=== PATIENT | female | born 1990 | race African-American/Black ===

== ENCOUNTER 2016-10-16 21:15 | Emergency (ER) | payer SELFPAY ==
--- NOTE | 2016-10-16 21:55 | ER Document Report ---
ED Medical Screen (RME) - General Stated Complaint: ABDOMINAL PAIN Mode of Arrival: Ambulatory Information source: Patient Notes: Patient complains of left lower quadrant pain that started yesterday that started off and on. Patient is currently 10 weeks . Patient denies vaginal bleeding or discharge. No urinary symptoms. No vomiting or diarrhea. . Patient has not had an ultrasound confirmed . hx: None I have greeted and performed a rapid initial assessment of this patient. A comprehensive ED assessment and evaluation of the patient, analysis of test results and completion of the medical decision making process will be conducted by additional ED providers. TRAVEL OUTSIDE OF THE [place] IN LAST 30 DAYS: No - Related Data Allergies/Adverse Reactions: No Known Allergies Allergy (Verified 10/16/16 21:54) Past Medical History GI Medical History: Reports: Hx Gastritis, Hx Gastroesophageal Reflux Disease. Denies: Hx Ulcer - Immunizations Hx Diphtheria, Pertussis, Tetanus Vaccination: Yes Physical Exam - Vital signs Vitals: Temp Pulse Resp BP Pulse Ox 97.8 F 100 18 122/75 100 10/16/16 21:43 10/16/16 21:43 10/16/16 21:43 10/16/16 21:43 10/16/16 21:43 - Abdominal Tenderness: Tender - Left lower quadrant Course - Re-evaluation Re-evalutation: 10/16/16 21:[address] virk regarding presentation, agrees with plan for u/s - Vital Signs Vital signs: Temp Pulse Resp BP Pulse Ox 97.8 F 100 18 122/75 100 10/16/16 21:43 10/16/16 21:43 10/16/16 21:43 10/16/16 21:43 10/16/16 21:43
[2016-10-16] MEDS ORDERED: ACETAMINOPHEN 325 MG TABLET PO ONE (21:56)
[2016-10-16 23:31] LABS: ABSOLUTE EOSINOPHILS # (AUTO) 0.1 10^3/uL (0.0-0.6); ABSOLUTE MONOCYTES (AUTO) 0.7 10^3/uL (0.1-1.4); ABSOLUTE NEUT (AUTO) 5.8 10^3/uL (1.7-8.2); BASOPHILS % (AUTO) 0.4 % (0-2); EOSINOPHILS % (AUTO) 0.8 % (0-6); HEMATOCRIT 38.1 % (36.0-47.0); HEMOGLOBIN 12.9 g/dL (12.0-15.5); HGB HCT DIFFERENCE 0.6; LYMPHOCYTES % (AUTO) 31.5 % (13-45); MEAN CORPUSCULAR HEMOGLOBIN 30.4 pg (27.0-33.4); MEAN CORPUSCULAR HGB CONC 33.7 g/dL (32.0-36.0); MEAN CORPUSCULAR VOLUME 90 fl (80-97); MONOCYTES % (AUTO) 6.9 % (3-13); RED BLOOD COUNT 4.23 10^6/uL (3.72-5.28); RED CELL DISTRIBUTION WIDTH 14.6 % (11.5-14.0); SEGMENTED NEUTROPHILS % (AUTO) 60.4 % (42-78); WHITE BLOOD COUNT 9.6 10^3/uL (4.0-10.5)
[2016-10-16 23:34] LABS: ALANINE AMINOTRANSFERASE 21 U/L (9-52); ALBUMIN 4.4 g/dL (3.5-5.0); ALKALINE PHOSPHATASE 58 U/L (38-126); ANION GAP 13 (5-19); ASPARTATE AMINO TRANSFERASE 14 U/L (14-36); BILIRUBIN,TOTAL 0.3 mg/dL (0.2-1.3); BLOOD UREA NITROGEN 7 mg/dL (7-20); CALCIUM 9.9 mg/dL (8.4-10.2); CARBON DIOXIDE 25 mmol/L (22-30); CHLORIDE 103 mmol/L (98-107); CREATININE RESULT 0.64 mg/dL (0.52-1.25); GLUCOSE 80 mg/dL (75-110); POTASSIUM 4.1 mmol/L (3.6-5.0); SODIUM 140.6 mmol/L (137-145); TOTAL PROTEIN 7.2 g/dL (6.3-8.2)
[2016-10-16 23:54] LABS: APPEARANCE,URINE SLIGHTLY-CLOUDY; BILIRUBIN,URINE NEGATIVE (NEGATIVE); GLUCOSE, URINE NEGATIVE (NEGATIVE); KETONES,URINE NEGATIVE (NEGATIVE); LEUKOCYTE ESTERASE,URINE TRACE (NEGATIVE); NITRITE,URINE NEGATIVE (NEGATIVE); PROTEIN,URINE NEGATIVE (NEGATIVE); URINE SPECIFIC GRAVITY 1.021; UROBILINOGEN,URINE NEGATIVE mg/dL (<2.0)
--- NOTE | 2016-10-17 00:27 | ER Document Report ---
ED GI/ - General Time seen by provider: 00:34 Mode of Arrival: Ambulatory Information source: Patient TRAVEL OUTSIDE OF THE [place] IN LAST 30 DAYS: No - HPI Patient complains to provider of: Abdominal pain, Onset: Other - see HPI Location: LLQ <SHREE CABELLO - Last Filed: 10/17/16 01:18> <KELLIMING VILLEDA GRACY - Last Filed: 10/17/16 05:08> - General Chief Complaint: Abdominal Pain Stated Complaint: ABDOMINAL PAIN Notes: Patient is a 26-year-old female presenting to the emergency department with complaints of abdominal pain. Patient states that her abdominal wall pain is located the LLQ of her abdomen. Patient is 10 weeks and 6 days . Patient states that she has also been very nauseous. Patient has not been able to keep her Flagyl down which she was prescribed by her PCP. Patient states she has an appointment for an ultrasound on Monday10/18/16. Patient states her pain was onset last night. Patient has no known allergies. (SHREE CABELLO) - Related Data Allergies/Adverse Reactions: No Known Allergies Allergy (Verified 10/16/16 21:54) Past Medical History - General Information source: Patient - Social History Smoking Status: Never Smoker Cigarette use (# per day): No Chew tobacco use (# tins/day): No Frequency of alcohol use: None Drug Abuse: None Family History: None GI Medical History: Reports: Hx Gastritis, Hx Gastroesophageal Reflux Disease Surgical Hx: Negative - Immunizations Hx Diphtheria, Pertussis, Tetanus Vaccination: Yes <SHREE CABELLO - Last Filed: 10/17/16 01:18> Review of Systems - Review of Systems Constitutional: No symptoms reported EENT: No symptoms reported Cardiovascular: No symptoms reported Respiratory: No symptoms reported Gastrointestinal: See HPI, Abdominal pain Genitourinary: No symptoms reported Female Genitourinary: See HPI, Musculoskeletal: No symptoms reported Skin: No symptoms reported Hematologic/Lymphatic: No symptoms reported Neurological/Psychological: No symptoms reported -: Yes All other systems reviewed and negative <SHREE CABELLO - Last Filed: 10/17/16 01:18> Physical Exam - Vital signs Interpretation: Normal - General General appearance: Appears well, Alert In distress: Mild - HEENT Head: Normocephalic, Atraumatic Eyes: Normal Pupils: PERRL - Respiratory Respiratory status: No respiratory distress Chest status: Nontender Breath sounds: Normal Chest palpation: Normal - Cardiovascular Rhythm: Regular Heart sounds: Normal auscultation Murmur: No - Abdominal Inspection: Normal Distension: No distension Bowel sounds: Normal Tenderness: Tender - mild left pelvic pain Organomegaly: No organomegaly - Back Back: Normal, Nontender - Extremities General upper extremity: Normal inspection, Normal ROM, Normal strength General lower extremity: Normal inspection, Normal ROM, Normal strength - Neurological Neuro grossly intact: Yes Cognition: Normal Orientation: AAOx4 Thom Coma Scale Eye Opening: Spontaneous Thom Coma Scale Verbal: Oriented [place] Coma Scale Motor: Obeys Commands [place] Coma Scale Total: 15 Speech: Normal - Psychological Associated symptoms: Normal affect, Normal mood - Skin Skin Temperature: Warm Skin Moisture: Dry <SHREE CABELLO - Last Filed: 10/17/16 01:18> Course - Laboratory Result Diagrams: 10/16/16 23:05 10/16/16 23:05 <SHREE CABELLO - Last Filed: 10/17/16 01:18> - Laboratory Result Diagrams: 10/16/16 23:05 10/16/16 23:05 - Diagnostic Test Radiology reviewed: Reports reviewed <MING SOSA - Last Filed: 10/17/16 05:08> - Re-evaluation Re-evalutation: 10/16 Patient with no pain on reexamination. Ultrasound within normal limits. Blood work within normal limits. No evidence for UTI. Patient will be discharged home. She does not need to have repeat ultrasound on Monday. She is instructed to call counselor. Understands and agrees with plan. Return if any worsening or concerning symptoms. Stable for discharge. (MING SOSA) - Vital Signs Vital signs: Temp Pulse Resp BP Pulse Ox 98.1 F 89 16 126/71 H 98 10/17/16 00:55 10/17/16 00:55 10/17/16 00:55 10/17/16 00:55 10/17/16 00:55 (SHREE CABELLO) (MING SOSA) - Laboratory Laboratory results interpreted by or: 10/16/16 10/16/16 10/16/16 23:05 23:05 23:05 RDW 14.6 H Beta HCG, Quant 17028.00 H Urine Blood SMALL H Ur Leukocyte Esterase TRACE H (SHREE CABELLO) (MING SOSA) Discharge <SHREE CABELLO - Last Filed: 10/17/16 01:18> <MIGN SOSA - Last Filed: 10/17/16 05:08> - Discharge Clinical Impression: Abdominal pain Qualifiers: Abdominal location: left lower quadrant Qualified Code(s): R10.32 - Left lower quadrant pain Qualifiers: Weeks of gestation: 10 weeks Qualified Code(s): Z3A.10 - 10 weeks gestation of Condition: Stable Disposition: HOME, SELF-CARE Instructions: Abdominal Pain ([facility]), Pelvic Pain in ([facility]), ( [facility]), Vaginosis, Bacterial ([facility]) Additional Instructions: Please call [phone] to cancel your ultrasound. Prescriptions: Metoclopramide HCl [Reglan 10 mg Tablet] 1 - 2 tab PO ASDIR PRN #25 tablet PRN Reason: Forms: Return to Work Scribe Attestation: 10/17/16 05:08 I personally performed the services described in the documentation, reviewed and edited the documentation which was dictated to the scribe in my presence, and it accurately records my words and actions. (MING SOSA) Scribe Documentation - Scribe Written by Scribe:: Shree Cabello 10/17/16 <SHREE CABELLO - Last Filed: 10/17/16 01:18>
[2016-10-17] MEDS ORDERED: ONDANSETRON ODT 4 MG TAB (6 TAB/DSPK) PO PRN (00:35)
[2016-10-17 01:25] VITALS: BP 126/71
== END 2016-10-17 01:00 | disposition home or self-care (01) ==
LOC: ER 21:15
DX: O26.91 Pregnancy related conditions, unspecified, first trimester (principal); R10.32 Left lower quadrant pain; R11.0 Nausea; Z3A.10 10 weeks gestation of pregnancy
CPT/HCPCS: 36415; 76817; 80053; 81001; 84702; 85025; 99284

== ENCOUNTER 2017-03-06 13:27 | Emergency (ER) | payer MEDICAID ==
--- NOTE | 2017-03-06 15:54 | ER Document Report ---
ED Extremity Problem, Lower - General Chief Complaint: Knee Pain Stated Complaint: RIGHT KNEE PAIN, SWELLING Time Seen by Provider: 03/06/17 15:36 Mode of Arrival: Ambulatory Information source: Patient Notes: 27-year-old female presents to ED for right knee pain and swelling since . She denies any injury any fall. No swelling to either ankle. She states that because she has been hobbling on the knee now her left buttock has been spasming. She states she is 30 weeks with her second child she lost her first child at 32 weeks for a demise in 2014 TRAVEL OUTSIDE OF THE [place] IN LAST 30 DAYS: No - HPI Patient complains to provider of: Pain, Swelling Location: Knee - Right Occurred: Other - Onset/Duration: Gradual Quality of pain: Achy, Sharp Severity: Moderate Pain Level: 3 Recent injury: No Associated symptoms: Painful ambulation Exacerbated by: Movement, Walking Relieved by: Nothing - Related Data Allergies/Adverse Reactions: No Known Allergies Allergy (Verified 03/06/17 13:44) Past Medical History - General Information source: Patient - Social History Smoking Status: Never Smoker Cigarette use (# per day): No Chew tobacco use (# tins/day): No Smoking Education Provided: No Frequency of alcohol use: None Drug Abuse: None Lives with: Alone Family History: DM. denies: Arthritis, CAD, COPD, CVA, Hyperlipidemia, Hypertension, Malignancy, Thyroid Disfunction Patient has suicidal ideation: No Patient has homicidal ideation: No - Past Medical History Cardiac Medical History: Reports: None Pulmonary Medical History: Reports: None EENT Medical History: Reports: None Neurological Medical History: Reports: None Endocrine Medical History: Reports: None Renal/ Medical History: Reports: Other - demise at 32 weeks and 2015 Malignancy Medical History: Reports: None GI Medical History: Reports: Hx Gastritis, Hx Gastroesophageal Reflux Disease Musculoskeltal Medical History: Reports None Skin Medical History: Reports None Psychiatric Medical History: Reports: None Traumatic Medical History: Reports: None Infectious Medical History: Reports: None - Immunizations Immunizations up to date: Yes Hx Diphtheria, Pertussis, Tetanus Vaccination: Yes Review of Systems - Review of Systems Constitutional: No symptoms reported EENT: No symptoms reported Cardiovascular: No symptoms reported Respiratory: No symptoms reported Gastrointestinal: No symptoms reported Genitourinary: No symptoms reported Female Genitourinary: No symptoms reported Musculoskeletal: Muscle pain - left buttock, Other - Right knee pain and swelling Skin: No symptoms reported Hematologic/Lymphatic: No symptoms reported Neurological/Psychological: No symptoms reported -: Yes All other systems reviewed and negative Physical Exam - Vital signs Vitals: Temp Pulse Resp BP Pulse Ox 98.1 F 95 18 104/59 L 99 03/06/17 13:45 03/06/17 13:45 03/06/17 13:45 03/06/17 13:45 03/06/17 13:45 Interpretation: Normal - General General appearance: Appears well, Alert - HEENT Head: Normocephalic, Atraumatic Eyes: Normal Pupils: PERRL - Respiratory Respiratory status: No respiratory distress Chest status: Nontender Breath sounds: Normal Chest palpation: Normal - Cardiovascular Rhythm: Regular Heart sounds: Normal auscultation Murmur: No - Abdominal Inspection: Normal Distension: No distension Bowel sounds: Normal Tenderness: Nontender Organomegaly: No organomegaly - Back Back: Normal, Nontender - Extremities General upper extremity: Normal inspection, Nontender, Normal color, Normal ROM , Normal temperature General lower extremity: Normal color, Normal ROM, Normal temperature. No: Aashish's sign Knee: Tender, Joint effusion, Pain with ROM, Patellar tendon intact. No: Ecchymosis - Neurological Neuro grossly intact: Yes Cognition: Normal Orientation: AAOx4 [place] Coma Scale Eye Opening: Spontaneous Thom Coma Scale Verbal: Oriented [place] Coma Scale Motor: Obeys Commands [place] Coma Scale Total: 15 Speech: Normal Motor strength normal: LUE, RUE, LLE, RLE Sensory: Normal - Psychological Associated symptoms: Normal affect, Normal mood - Skin Skin Temperature: Warm Skin Moisture: Dry Skin Color: Normal Course - Re-evaluation Re-evalutation: 03/06/17 21:[address] Fuller with the results of the x-ray. She states the patient should follow-up with orthopedics as well as [facility] OPERATOR. Patient given this information. She states she would rather take Tylenol at home and did not want to receive any Tylenol in the emergency room. - Vital Signs Vital signs: Temp Pulse Resp BP Pulse Ox 98.1 F 87 20 100/78 99 03/06/17 18:09 03/06/17 18:09 03/06/17 18:09 03/06/17 18:09 03/06/17 18:09 - Diagnostic Test Radiology reviewed: Image reviewed, Reports reviewed Discharge - Discharge Clinical Impression: Effusion, right knee Condition: Stable Disposition: HOME, SELF-CARE Additional Instructions: Knee Effusion You have a fluid collection in the knee joint, called an effusion. This fluid build up can occur from irritation of the synovial membrane lining the knee joint or from a more serious injury to the knee. Irritation of the membrane can occur from excessive, repetitive knee activitiy, like kneeling or squatting for extended periods or even just excessive walking, jogging, or skiing. Effusions also can occur with infections in the joint and with some arthritic conditions, especially gout. Fluid collections in these situations are usually yellow in color and either clear or cloudy in appearance. Significant injury to the knee can result in fluid collection which is partly or entirely blood and this condition is known as a hemarthrosis of the knee joint. If the fluid collection is not too large and/or painful, it can be managed conservatively with rest, ice packs, and anti-inflammatory and pain medications as needed. If the fluid collection is large and very painful, the knee joint can be drained (aspirated) by a relatively minor procedure of inserting a needle in the joint and removing some or all of the fluid present. If your knee was aspirated, you should rest it as much as possible for a few days, keep a pressure dressing around the knee and apply ice packs for at least 48 - 72 hours. If there are signs of developing infection such as heat and redness of the knee, fever, etc. you should return immediately for a recheck. ICE & ELEVATION: Apply ice packs frequently against the painful area. Many different schedules are recommended, such as "20 minutes on, 20 minutes off" or "one hour ice, two hours rest." If you need to work, you may need to go longer between ice treatments. You should plan to have the area ice packed AT LEAST one- fourth of the time. The ice should be applied over the wrap, tape, or splint, or over a layer of cloth -- not directly against the skin. Some ice bags have a built-in cloth and can be put directly on the skin. Your injured part should be elevated as much as possible over the next 48 hours. Try to keep the injury above the level of the heart. Avoid use of the injured area. Elevation and rest will decrease the swelling. Acetaminophen Acetaminophen may be taken for pain relief or fever control. It's much safer than aspirin, offering a wider range of "safe" dosages. It is safe during . Some brand names are Tylenol, Panadol, Datril, Anacin 3, Tempra, and Liquiprin. Acetaminophen can be repeated every four hours. The following are maximum recommended dosages: WEIGHT Dose Drops Elixir Chewable( 80mg) (LBS.) drprs=droppers tsp=teaspoon 6 40 mg .4 ml (1/2) 6-11 80 mg .8 ml (full) 1/2 tsp 1 tab 12-16 120 mg 1 1/2 drprs 3/4 tsp 1 1/2 tabs 17-23 160 mg 2 drprs 1 tsp 2 tabs 24-30 240 mg 3 drprs 1 1/2 tsp 3 tabs 30-35 320 mg 2 tsp 4 tabs 36-41 360 mg 2 1/4 tsp 4 1 /2 tabs 42-47 400 mg 2 1/2 tsp 5 tabs 48-53 480 mg 3 tsp 6 tabs 54-59 520 mg 3 1/4 tsp 6 1 /2 tabs 60-64 560 mg 3 1/2 tsp 7 tabs 65-70 600 mg 3 3/4 tsp 7 1 /2 tabs 71-76 640 mg 4 tsp 8 tabs 77-82 720 mg 4 1/2 tsp 9 tabs 83-88 800 mg 5 tsp 10 tabs >89 pounds or adults 650 mg to 900 mg Acetaminophen can be repeated every four hours. Maximum daily dose not to exceed 4000 mg. These maximum recommended dosages are slightly higher than the dosages written on the product container, but these dosages are very safe and well below the toxic dosage for acetaminophen. FOLLOW-UP CARE: If you have been referred to a physician for follow-up care, call the physician s office for an appointment as you were instructed or within the next two days. If you experience worsening or a significant change in your symptoms, notify the physician immediately or return to the Emergency Department at any time for re-evaluation. Follow up with your primary doctor tomorrow by telephone and get a consult for an orthopedic referral for your right knee effusion. Follow-up with your OB/ TRANSFER SPECIALIST. Referrals: LEIGH ANN MOELLER MD [Primary Care Provider] - Follow up tomorrow
--- NOTE | 2017-03-06 16:47 | RADIOLOGY REPORT (SQ) ---
EXAM DESCRIPTION: KNEE RIGHT 4 VIEWS COMPLETED DATE/TIME: 03/06/2017 4:33 pm REASON FOR STUDY: pain and swelling COMPARISON: None. NUMBER OF VIEWS: Four views. TECHNIQUE: AP, lateral, and both oblique radiographic images acquired of the right knee. LIMITATIONS: None. FINDINGS: MINERALIZATION: Normal. BONES: No acute fracture or dislocation. No worrisome bone lesions. JOINT: Moderate size suprapatellar knee joint effusion. There are intra-articular loose bodies, with a 1.5 cm x 0.8 cm loose body in the anterior intercondylar notch, and several small less than 5 mm loose bodies over the posterior joint on lateral view SOFT TISSUES: No soft tissue swelling. No radio-opaque foreign body. OTHER: No other significant finding. IMPRESSION: No acute fracture or malalignment. Suprapatellar knee joint effusion intra-articular loose bodies present. TECHNICAL DOCUMENTATION: JOB ID: [id number] [employer]- All Rights Reserved
[2017-03-06 18:10] VITALS: BP 100/78
== END 2017-03-06 18:08 | disposition home or self-care (01) ==
LOC: ER 13:27
DX: O99.89 Other specified diseases and conditions complicating pregnancy, childbirth and the puerperium (principal); M25.461 Effusion, right knee; M25.561 Pain in right knee; M25.552 Pain in left hip; O26.893 Other specified pregnancy related conditions, third trimester; R25.2 Cramp and spasm; Z3A.30 30 weeks gestation of pregnancy
CPT/HCPCS: 99283

== ENCOUNTER 2017-03-23 14:20 | Outpatient (CLI) | payer MEDICAID | END 2017-03-23 15:00 | disposition home or self-care (01) | LOC: LC 14:20 | PROVIDERS: ATTEND Obstetrics & Gynecology | PROC: 4A1HXCZ Monitoring of Products of Conception, Cardiac Rate, External Approach (ICD-10-PCS; principal; 2017-03-23) | DX: Z34.93 Encounter for supervision of normal pregnancy, unspecified, third trimester (principal); Z36 Encounter for antenatal screening of mother; Z3A.33 33 weeks gestation of pregnancy | CPT/HCPCS: 59025 ==

== ENCOUNTER 2017-03-27 15:47 | Outpatient (CLI) | payer MEDICAID ==
--- NOTE | 2017-03-27 17:54 | Non Stress Test Report ---
Non Stress Test Datetime Report Generated by CPN: 03/27/2017 17:54 DEMOGRAPHIC Test Number: 2 Test Number: 1 EGA NST: 34.0 EGA NST: 33.3 INDICATION Indication for Study: Diabetes Mellitus MONITORING Monitor Explained: Monitor Explained; Test Explained; Patient Verbalized Understanding Monitor Explained: Monitor Explained; Test Explained; Patient Verbalized Understanding Time on Monitor: 03/27/2017 16:06 Time on Monitor: 03/23/2017 14:31 Time off Monitor: 03/27/2017 17:33 Time off Monitor: 03/23/2017 14:54 NST Duration: 87 NST Duration: 23 NST INTERVENTIONS NST Interventions: Reposition Patient NST Interventions: PO Hydration; Reposition Patient Physician Notified NST: Dr. Mayorga BABY A: [id number] BABY A Movement : Present Movement : Present Contraction Frequency : 0 FHR Baseline : 140 Accelerations : 15X15 Accelerations : 15X15 Decelerations : None Decelerations : None Variability : Moderate 6-25bpm Variability : Moderate 6-25bpm NST Review: Meets Criteria for Reactive NST NST Review: Meets Criteria for Reactive NST NST Review and Verified By : Solange Mayorga RN NST Results: Reactive NST Results: Reactive NST REPORT Report Trigger: Send Report
== END 2017-03-27 17:40 | disposition home or self-care (01) ==
LOC: LC 15:47
PROVIDERS: ATTEND Obstetrics & Gynecology
PROC: 4A1HXCZ Monitoring of Products of Conception, Cardiac Rate, External Approach (ICD-10-PCS; principal; 2017-03-27)
DX: O24.913 Unspecified diabetes mellitus in pregnancy, third trimester (principal); Z3A.34 34 weeks gestation of pregnancy
CPT/HCPCS: 59025

== ENCOUNTER 2017-04-14 11:51 | Outpatient (CLI) | payer MEDICAID ==
--- NOTE | 2017-04-14 12:40 | Non Stress Test Report ---
Non Stress Test Datetime Report Generated by CPN: 04/14/2017 12:39 DEMOGRAPHIC EGA NST: 36.4 INDICATION Indication for Study: Diabetes Mellitus; Ordered by Provider Indication for Study (NST) Other: h/o 32 week iufd MONITORING Monitor Explained: Monitor Explained; Test Explained; Other Time on Monitor: 04/14/2017 12:04 Time off Monitor: 04/14/2017 12:30 NST Duration: 26 NST INTERVENTIONS NST Interventions: PO Hydration; Reposition Patient Physician Notified NST: Dr Newman BABY A: [id number] BABY A Movement : Present Contraction Frequency : 0 FHR Baseline : 130 Accelerations : 15X15 Decelerations : None Variability : Moderate 6-25bpm NST Review: Meets Criteria for Reactive NST NST Review and Verified By : Yue Bellavancayla RNC NST Results: Reactive NST REPORT Report Trigger: Send Report
== END 2017-04-14 12:43 | disposition home or self-care (01) ==
LOC: LC 11:51
PROVIDERS: ATTEND Student in an Organized Health Care Education/Training Program
PROC: 4A1HXCZ Monitoring of Products of Conception, Cardiac Rate, External Approach (ICD-10-PCS; principal; 2017-04-14)
DX: O24.913 Unspecified diabetes mellitus in pregnancy, third trimester (principal); O09.293 Supervision of pregnancy with other poor reproductive or obstetric history, third trimester; Z3A.36 36 weeks gestation of pregnancy

== ENCOUNTER 2017-05-01 12:18 | Outpatient (CLI) | payer MEDICAID | END 2017-05-01 12:58 | disposition home or self-care (01) | LOC: LC 12:18 | PROVIDERS: ATTEND Obstetrics & Gynecology | PROC: 4A1HXCZ Monitoring of Products of Conception, Cardiac Rate, External Approach (ICD-10-PCS; principal; 2017-05-01) | DX: Z34.03 Encounter for supervision of normal first pregnancy, third trimester (principal) | CPT/HCPCS: 59025 ==

== ENCOUNTER 2017-05-03 03:28 | Inpatient (IN) | payer MEDICAID ==
[2017-05-03] MEDS: OXYTOCIN/NORMAL SALINE 20 UNIT/1,000 ML RTUINJ IV PRN ×2 (03:49→21:30)
[2017-05-03] MEDS ORDERED: DINOPROSTONE 10 MG VAGINAL INSERT.SR PV ONE (03:49)
[2017-05-03] MEDS ORDERED: RINGERS SOLUTION,LACTATED 300 ML IV ONE (03:49)
[2017-05-03] MEDS ORDERED: ZOLPIDEM TARTRATE 5 MG TABLET PO PRN (03:49)
[2017-05-03] MEDS ORDERED: ACETAMINOPHEN 325 MG TABLET PO PRN (03:49)
[2017-05-03] MEDS ORDERED: MAG HYDROX/AL HYDROX/SIMETH SUSP 30 ML UDCUP PO PRN (03:49)
[2017-05-03 04:56] LABS: ABSOLUTE EOSINOPHILS # (AUTO) 0.1 10^3/uL (0.0-0.6); ABSOLUTE LYMPHOCYTES (AUTO) 1.9 10^3/uL (0.5-4.7); ABSOLUTE MONOCYTES (AUTO) 0.8 10^3/uL (0.1-1.4); BASOPHILS % (AUTO) 0.4 % (0-2); EOSINOPHILS % (AUTO) 0.7 % (0-6); HEMATOCRIT 26.8 % (36.0-47.0); HEMOGLOBIN 8.7 g/dL (12.0-15.5); HGB HCT DIFFERENCE -0.7; LYMPHOCYTES % (AUTO) 21.8 % (13-45); MEAN CORPUSCULAR HEMOGLOBIN 27.1 pg (27.0-33.4); MEAN CORPUSCULAR HGB CONC 32.6 g/dL (32.0-36.0); MEAN CORPUSCULAR VOLUME 83 fl (80-97); MONOCYTES % (AUTO) 9.3 % (3-13); RED BLOOD COUNT 3.22 10^6/uL (3.72-5.28); RED CELL DISTRIBUTION WIDTH 16.2 % (11.5-14.0); SEGMENTED NEUTROPHILS % (AUTO) 67.8 % (42-78); WHITE BLOOD COUNT 8.9 10^3/uL (4.0-10.5)
[2017-05-03 05:03] LABS: APPEARANCE,URINE CLEAR; BILIRUBIN,URINE NEGATIVE (NEGATIVE); GLUCOSE, URINE NEGATIVE (NEGATIVE); KETONES,URINE NEGATIVE (NEGATIVE); LEUKOCYTE ESTERASE,URINE NEGATIVE (NEGATIVE); NITRITE,URINE NEGATIVE (NEGATIVE); PROTEIN,URINE NEGATIVE (NEGATIVE); URINE SPECIFIC GRAVITY 1.023; UROBILINOGEN,URINE NEGATIVE mg/dL (<2.0)
[2017-05-03] MEDS ORDERED: DINOPROSTONE 10 MG VAGINAL INSERT.SR ONE (05:11)
[2017-05-03] MEDS: RINGERS SOLUTION,LACTATED 1,000 ML IV PRN (05:17)
[2017-05-03] MEDS ORDERED: ONDANSETRON HCL INJ/PF 4 MG/2 ML SDV ONE (05:27)
[2017-05-03 05:54] LABS: URINE BARBITURATES SCREEN NEGATIVE; URINE METHADONE SCREEN NEGATIVE; URINE OPIATES LOW NEGATIVE
[2017-05-03 06:16] LABS: URINE PHENCYCLIDINE SCREEN NEGATIVE
[2017-05-03] MEDS ORDERED: MAG HYDROX/AL HYDROX/SIMETH SUSP 30 ML UDCUP ONE (10:49)
[2017-05-03] MEDS ORDERED: OXYTOCIN/NORMAL SALINE 20 UNIT/1,000 ML RTUINJ ONE (20:36)
[2017-05-04] MEDS ORDERED: PROMETHAZINE HCL INJ 25 MG/1 ML VIAL IV ONE (01:16)
--- NOTE | 2017-05-04 01:19 | L&D Progress Notes ---
PROGRESS NOTES Datetime Report Generated by CPN: 05/04/2017 01:19 PROGRESS NOTE Impression Other: GDMA1, h/o IUFD, growth lag Plan: Continue Present Management Comment: cont pit phenergan for nausea FETUS A FHR Category: Category I SIGNATURE SIGNATURE: [id number] SIGNATURE: [id number] Signature: with User ID: [email or web address]
[2017-05-04] MEDS ORDERED: PROMETHAZINE HCL INJ 25 MG/1 ML VIAL ONE (01:21)
[2017-05-04] MEDS ORDERED: LANSOPRAZOLE 30 MG TAB.RAP.DR PO ONE (06:16)
--- NOTE | 2017-05-04 06:19 | L&D Progress Notes ---
PROGRESS NOTES Datetime Report Generated by CPN: 05/04/2017 06:19 PROGRESS NOTE Impression Other: GDMA1, growth lag, h/o IUFD Procedures: Artificial ROM Plan: Continue Present Management Comment: Pit now at 16 mu but pt still comfortable. AROM clear, small amt. FS 87 during night. Cont pit induction. FETUS C SIGNATURE: [id number] SIGNATURE: [id number];[id number] Signature: with User ID: [email or web address]
[2017-05-04] MEDS ORDERED: LANSOPRAZOLE 30 MG TAB.RAP.DR ONE (06:22)
[2017-05-04] MEDS ORDERED: FENTANYL CITRATE INJ/PF 100 MCG/2 ML AMPUL ONE (07:37)
[2017-05-04] MEDS ORDERED: EPHEDRINE SULFATE INJ 50 MG/1 ML AMPULE ONE (07:38)
[2017-05-04] MEDS ORDERED: PHENYLEPHRINE HCL INJ/PF 10 MG/1 ML SDV ONE (07:38)
[2017-05-04] MEDS ORDERED: BUPIVACAINE HCL 0.25 % INJ/PF (2.5 MG/1 ML) 30 ML VIAL ONE (07:39)
[2017-05-04] MEDS ORDERED: FENTANYL/BUPIVACAINE/NS/PF 200 MCG/100 ML RTUINJ EPI ONE (07:39)
[2017-05-04] MEDS: RINGERS SOLUTION,LACTATED 1,000 ML IV PRN (09:04)
[2017-05-04] MEDS ORDERED: LIDOCAINE 1% INJ-PF (10 MG/ML) 30 ML SDV ONE (09:34)
[2017-05-04] MEDS ORDERED: MISOPROSTOL 0.2 MG TABLET ONE (09:34)
[2017-05-04] MEDS ORDERED: OXYTOCIN/NORMAL SALINE 20 UNIT/1,000 ML RTUINJ ONE (09:35)
[2017-05-04] MEDS ORDERED: MEASLES,MUMPS&RUBELLA VACC/PF 0.5 ML VIAL SUBCUT PRN (11:49)
[2017-05-04] MEDS ORDERED: DIBUCAINE 1% OINTMENT 28 GM TP PRN (11:49)
[2017-05-04] MEDS ORDERED: OXYTOCIN/NORMAL SALINE 1,000 ML IV PRN (11:49)
[2017-05-04] MEDS ORDERED: DIPH/PERTUSS(ACELL)/TETANUS VAC/PF 0.5 ML SYR (>=10YO) IM PRN (11:49)
[2017-05-04] MEDS ORDERED: ZOLPIDEM TARTRATE 5 MG TABLET PO PRN (11:49)
[2017-05-04] MEDS ORDERED: BENZOCAINE/MENTHOL AEROSOL SPRAY 56 ML TOP PRN (11:49)
[2017-05-04] MEDS ORDERED: OXYTOCIN/NORMAL SALINE 20 UNIT/1,000 ML RTUINJ IV PRN ×2 (12:11→12:30)
--- NOTE | 2017-05-04 12:54 | Admission Physical ---
Datetime Report Generated by CPN: 05/04/2017 12:54 CURRENT ADMISSION Hx Assessment: The History has been Reviewed and is Current Chief Complaint: Scheduled Induction of Labor Indication for Induction- Other: noncompliant GDM, h/o IUFD Admit Plan: Initiate Labor Induction Protocol ALLERGIES Medication Allergies: No Medication Allergies: No Known Allergies (05/03/2017) Medication Allergies: No Known Allergies (05/01/2017) Medication Allergies: No Known Allergies (03/23/2017) Medication Allergies: No Known Allergies (03/06/2017) Latex: No Latex Allergies Food Allergies: None Environmental Allergies: None OBSTETRICAL HISTORY EDC: 05/08/2017 00:00 : 3 Para: 1 Term: 0 : 1 SAB: 1 IAB: 0 Ectopic: 0 Livin Cesareans: 0 VBACs: 0 Multiple Births: 0 Gestational Diabetes: Yes Rh Sensitization: No Incompetent Cervix: No LUIS: No Infertility: No ART Treatment: No Uterine Anomaly: No IUGR: No Hx Previous C/S: No Macrosomia: No Hx Loss/Stillborn: No PIH: No Hx : No Placenta Previa/Abruption: No Depression/PP Depression: No PTL/PROM: No Post Hemorrhage: No Current Procedures: Ultrasound; NST Obstetrical History Comments: G1: 36.5 week IUFD G2: SAB G3: current GDM, non-compliant, growth lag SEE RECORDS Alcohol: No Marijuana : No Cocaine: No Other Illicit Drugs: No Cigarettes: Former Smoker. [id number] MEDICAL HISTORY Diabetes: Yes Diabetes Type: Gestational Diabetes Blood Transfusion: No Pulmonary Disease (Asthma, TB): No Breast Disease: No Hypertension: No [employer] Surgery: No Heart Disease: No Hosp/Surgery: No Autoimmune Disorder: No Anesthetic Complications: No Kidney Disease: No Abnormal Pap Smear: No Neuro/Epilepsy: No Psychiatric Disorders: No Other Medical Diseases: No Hepatitis/Liver Disease: No Significant Family History: No Varicosities/Phlebitis: No Trauma/Violence : No Thyroid Dysfunction: No INFECTIOUS HISTORY Gonorrhea: No Genital Herpes: No Chlamydia: No Tuberculosis: No Syphilis: No Hepatitis: No HIV/AIDS Exposure: No Rash or Viral Illness: No HPV: No PHYSICAL EXAM General: Normal HEENT: Normal Neurologic: Normal Thyroid: Normal Heart: Normal Lungs: Normal Breast: Normal Back: Normal Abdomen: Normal Genitourinary Exam: Normal Extremities: Normal DTRs: Normal Pelvic Type: Adequate Physical Exam Comments: FS 124 this am less than 2 hr pp Vital Signs: Reviewed FETUS A EGA: 39.2 FHR Category: Category I Admit Comment: pt with cervidil in place, desires epidural when contractions intensify PLANS FOR LABOR AND DELIVERY Labor and Delivery: None Pain Management: Epidural Feeding Preference: Breast Benefit of Breast Feed Discussed: Yes Circumcision: N/A INFORMED CONSENT Signature: with User ID: [email or web address]
[2017-05-04] MEDS: IBUPROFEN 800 MG TABLET PO SCH ×2 (14:14→21:00)
--- NOTE | 2017-05-04 14:21 | Delivery Summary ---
Del Sum A-C Datetime Report Generated by CPN: 05/04/2017 14:21 DELIVERY PERSONNEL DELIVERY PERSONNEL: [id number] Delivery Doctor:: Yadi Ramsey CNM Nurse Sodium Methylate Operator Certified:: Yadi Ramsey CNM Labor and Delivery Nurse:: Flory Camarena RNticketer Nurse:: TONEY Eller Nursery Nurse:: Yaneli Macdonald RN Nursery Nurse:: Sintia Juan RN Student Observers:: LIT Herbert student Long Wall Shear Operator/DEVANTE: Yael Nolasco CNA II MATERNAL INFORMATION Delivery Anesthesia: Epidural Medications After Delivery: Pitocin Bolus-Please Comment Meds After Delivery Comment: Pitocin 20 units in 1000 ml nss open for bolus Estimated Blood Loss (ml): 200 Maternal Complications: None Provider Comments: HUMBERTO with epidural anesthesia. Infant vigorous, to mothers abd. Cord clamped x 2 cut per FOB, 3VC. Placenta intact via galo. EBL 200. Apgars 9,9. Mother and stable. 1*periurethral and perineal lacerations very superficial, no repairs needed. LABOR SUMMARY EDC: 05/08/2017 00:00 No. Babies in Womb: 1 Attempted: No Labor Anesthesia: Epidural LABOR INFORMATION Reason for Induction: Intrauterine Growth Retardation; Maternal Diabetes; Other Onset of Labor: 05/04/2017 07:49 Complete Dilatation: 05/04/2017 09:48 Cervical Ripening Agents: Cervidil Oxytocin: Induction Group B Beta Strep: negative Steroids Given: None Reason Steroids Not Administered: Not Applicable MEMBRANES Membranes Rupture Method: Artificial Rupture of Membranes: 05/04/2017 06:10 Length of Rupture (hr): 3.75 Amniotic Fluid Color: Clear Amniotic Fluid Amount: Small Amniotic Fluid Odor: None STAGES OF LABOR Stage 1 hr: 1 Stage 1 min: 59 Stage 2 hr: 0 Stage 2 min: 7 Stage 3 hr: 0 Stage 3 min: 4 Total Time in Labor hr: 2 Total Time in Labor min: 10 VAGINAL DELIVERY Episiotomy: None Laceration Extension: First Degree Laceration Type: Perineal; Periurethral Other Laceration: superficial lacerations no repair Laceration Repair: Not Applicable Laceration Repair Note: no repairs needed Sponge Count Correct: N/A Sharps Count Correct: N/A CSECTION DELIVERY Primary Indication: N/A Secondary Indication: N/A CSection Incidence: N/A Labor: N/A Elective: N/A CSection Incision: N/A BABY A INFORMATION Delivery Date/Time: 05/04/2017 09:55 Method of Delivery: Vaginal Born in Route : No : N/A Forceps: N/A Vacuum Extraction: N/A Shoulder Dystocia : No PRESENTATION/POSITION BABY A Presentation: Cephalic Cephalic Presentation: Vertex Vertex Position: Left Occipital Anterior Breech Presentation: N/A PLACENTA INFORMATION BABY A Placenta Delivery Time : 05/04/2017 09:59 Placenta Method of Delivery: Spontaneous Placenta Status: Delivered SCORES BABY A Heart Rate 1 min: >100 bpm Resp Effort 1 min: Good Cry Reflex Irritability 1 min: Cough or Sneeze or Pulls Away Muscle Tone 1 min: Active Motion Color 1 min: Body [place], Extremities Blue Resuscitation Effort 1 min: Tactile Stimulation SCORE 1 MIN: 9 Heart Rate 5 min: >100 bpm Resp Effort 5 min: Good Cry Reflex Irritability 5 min: Cough or Sneeze or Pulls Away Muscle Tone 5 min: Active Motion Color 5 min: Body [place], Extremities Blue Resuscitation Effort 5 min: N/A SCORE 5 MIN: 9 Resuscitation Effort 10 min: N/A INFANT INFORMATION BABY A Gestational Age at Delivery: 39.3 Gestational Status: Full Term- 39- 40.6 Weeks Outcome : Liveborn Condition : Stable Sex: Female IDENTIFICATION BABY A Verification Date/Time: 05/04/2017 10:08 ID Band Number: [id number] Mother's Name Verified: Yes Infant RN Verifying : C. yunior, RN / S. Camp, RN WEIGHT/LENGTH BABY A Infant Birthweight (gm): 2610 Infant Weight (lb): 5 Infant Weight (oz): 12 Infant Length (in): 18.00 Length (cm): 45.72 CORD INFORMATION BABY A No. Cord Vessels: 3 Nuchal Cord : N/A Cord Blood Taken: Yes-For Eval (Mom's Blood Type - or O+) Infant Suction: None ASSESSMENT BABY A Infant Respirations: Appears Normal Skin to Skin: Yes Skin to Skin Time (min): 60 Filler Blender/ALS Called : No BABY B INFORMATION : Failed SIGNATURES Assignment: Reyna Newman MD Signature: with User ID: [email or web address] : with User ID: [email or web address] : I was personally available for consultation and serving as supervising physician for the MLP.
[2017-05-04] MEDS: FERROUS SULFATE 325 MG TABLET PO SCH (17:34)
[2017-05-04] MEDS: DOCUSATE SODIUM 100 MG CAPSULE PO SCH (17:34)
[2017-05-04] MEDS ORDERED: ACETAMINOPHEN WITH CODEINE #3 TABLET PO PRN (21:05)
[2017-05-05] MEDS: IBUPROFEN 800 MG TABLET PO SCH ×3 (05:28→21:43)
[2017-05-05 07:24] LABS: HEMATOCRIT 26.5 % (36.0-47.0); HEMOGLOBIN 8.8 g/dL (12.0-15.5); HGB HCT DIFFERENCE -0.1; MEAN CORPUSCULAR HEMOGLOBIN 27.8 pg (27.0-33.4); MEAN CORPUSCULAR HGB CONC 33.1 g/dL (32.0-36.0); MEAN CORPUSCULAR VOLUME 84 fl (80-97); RED BLOOD COUNT 3.16 10^6/uL (3.72-5.28); RED CELL DISTRIBUTION WIDTH 16.3 % (11.5-14.0); WHITE BLOOD COUNT 10.5 10^3/uL (4.0-10.5)
[2017-05-05] MEDS: SENNOSIDES/DOCUSATE 8.6-50 MG 1 EACH TABLET PO SCH (09:37)
[2017-05-05] MEDS: FERROUS SULFATE 325 MG TABLET PO SCH ×2 (09:37→18:25)
[2017-05-05] MEDS: DOCUSATE SODIUM 100 MG CAPSULE PO SCH ×2 (09:38→18:25)
[2017-05-05] MEDS: PRENATAL VITAMIN W-O CA NO5/FE FUMARATE/FA CAPSULE PO SCH (09:38)
[2017-05-06] MEDS: IBUPROFEN 800 MG TABLET PO SCH (05:04)
[2017-05-06] MEDS: FERROUS SULFATE 325 MG TABLET PO SCH (09:41)
[2017-05-06] MEDS: PRENATAL VITAMIN W-O CA NO5/FE FUMARATE/FA CAPSULE PO SCH (09:41)
[2017-05-06] MEDS: SENNOSIDES/DOCUSATE 8.6-50 MG 1 EACH TABLET PO SCH (09:41)
[2017-05-06] MEDS: DOCUSATE SODIUM 100 MG CAPSULE PO SCH (09:41)
--- NOTE | 2017-05-06 10:06 | PDOC PROGRESS REPORT ---
Subjective-OB Subjective: Post Delivery Day: 27 year old. Denies any needs at this time Doing well, ready to go home, breast feeding, voiding, eating well Physical Exam (OB) Vital Signs: Temp Pulse Resp BP Pulse Ox 97.9 F 75 18 106/63 95 05/06/17 07:53 05/06/17 07:53 05/06/17 07:53 05/06/17 07:53 05/06/17 07:53 - PIH/Pre-Eclampsia DTR's: 2 + Clonus: Negative Headache: Absent Epigastric Pain: No Visual Changes: No - Lochia Lochia Amount: Small 10-25 ml Lochia Color: Rubra/Red - Abdomen Description: Soft Hernia Present: No Fundal Description: Firm, Midline Fundal Height: u/u - u/2 Objective-Diagnostic Laboratory: 05/05/17 07:12 Assessment and Plan(PN) - Assessment and Plan (1) Normal vaginal delivery Is this a current diagnosis for this admission?: Yes (2) THC use in Is this a current diagnosis for this admission?: Yes (3) Anemia Qualifiers: Anemia type: iron deficiency Is this a current diagnosis for this admission?: Yes - Time Spent with Patient Time with patient: Less than 15 minutes Medications reviewed and adjusted accordingly: Yes - Disposition Anticipated Discharge: Home Within: Other - home today
--- NOTE | 2017-05-06 10:12 | PDOC DISCHARGE SUMMARY ---
Final Diagnosis Discharge Date: 05/06/17 - Final Diagnosis (1) Normal vaginal delivery Is this a current diagnosis for this admission?: Yes (2) THC use in Is this a current diagnosis for this admission?: Yes (3) Anemia Is this a current diagnosis for this admission?: Yes Discharge Data - Discharge Medication Home Medications: Pnv No.122/Iron/Folic Acid [ Multi Tablet] 1 tab PO DAILY 03/23/17 Ferrous Sulfate [Feosol 325 mg Tablet] 325 mg PO BID #60 tablet 05/06/17 Gestational Age: 39.3 Reason(s) for Admission: Onset of Labor Procedures: NST, Ultrasound Intrapartum Procedure(s): Spontaneous Vaginal Delivery Complication(s): Laceration-Perineal, Laceration-Periurethral Laceration-Degree: 1st - Data Baby 1 Female at 1 minute: 9 at 5 minutes: 9 Weight: 2.608 kg Home with Mother: Yes Complications: No - Diagnosis Test Laboratory: Temp Pulse Resp BP Pulse Ox 97.9 F 75 18 106/63 95 05/06/17 07:53 05/06/17 07:53 05/06/17 07:53 05/06/17 07:53 05/06/17 07:53 05/03/17 05/03/17 05/05/17 03:45 04:25 07:12 RBC 3.22 L 3.16 L Hgb 8.7 L 8.8 L Hct 26.8 L 26.5 L Urine Opiates Screen NEGATIVE - Discharge information/Instructions Discharge Activity: Activity As Tolerated, No Lifting Over 10 Pounds, No Lifting /Push/Pulling, Pelvic Rest Discharge Diet: As Tolerated Disposition: HOME, SELF-CARE Follow up with: [facility] in: 4, Weeks
[2017-05-06 10:15] VITALS: BP 116/64
== END 2017-05-06 14:07 | disposition home or self-care (01) | DRG 775 ==
LOC: LC 03:28 → LR 03:46 → 2N 05-04 12:53
PROVIDERS: ADMIT Obstetrics & Gynecology; ATTEND Obstetrics & Gynecology
PROC: 3E0P7GC Introduction of Other Therapeutic Substance into Female Reproductive, Via Natural or Artificial Opening (ICD-10-PCS; 2017-05-03)
PROC: 3E033VJ Introduction of Other Hormone into Peripheral Vein, Percutaneous Approach (ICD-10-PCS; 2017-05-03)
PROC: 10E0XZZ Delivery of Products of Conception, External Approach (ICD-10-PCS; principal; 2017-05-04)
DX: O99.324 Drug use complicating childbirth (principal); O24.429 Gestational diabetes mellitus in childbirth, unspecified control; Z37.0 Single live birth; O36.5930 Maternal care for other known or suspected poor fetal growth, third trimester, not applicable or unspecified; F12.90 Cannabis use, unspecified, uncomplicated; O70.0 First degree perineal laceration during delivery; O71.82 Other specified trauma to perineum and vulva; O99.02 Anemia complicating childbirth; D50.9 Iron deficiency anemia, unspecified; Z3A.39 39 weeks gestation of pregnancy; Z87.891 Personal history of nicotine dependence
CPT/HCPCS: 36415; 80307; 81005; 82962; 85025; 85027; 86592; 86850; 86900; 86901; 94760; J2370; J2405; J2550; J2590; J3010; J3490

== ENCOUNTER 2018-01-02 16:49 | Emergency (ER) | payer MEDICAID ==
[2018-01-02] MEDS ORDERED: LIDOCAINE 2% VISCOUS SOLN 20 ML UDCUP PO ONE (18:47)
[2018-01-02] MEDS ORDERED: MAG HYDROX/AL HYDROX/SIMETH SUSP 30 ML UDCUP PO ONE (18:47)
[2018-01-02] MEDS ORDERED: METOCLOPRAMIDE HCL ORAL SOLN 10 MG/10 ML UDCUP PO ONE (18:47)
--- NOTE | 2018-01-02 18:48 | ER Document Report ---
ED General - General Chief Complaint: Abdominal Pain Stated Complaint: ABDOMINAL PAIN, RIGHT KNEE SWELLING Time Seen by Provider: 01/02/18 18:17 Mode of Arrival: Ambulatory Information source: Patient Notes: 27-year-old female presents with complaints of epigastric abdominal pain. Patient notes symptoms have been ongoing now for 2 weeks denies any fevers or chills admits to vomiting notes she had some bright red blood 2 days ago Patient also notes 2 weeks duration of right knee injury since she twisted it and it has been swollen but is able to ambulate TRAVEL OUTSIDE OF THE [place] IN LAST 30 DAYS: No - HPI Onset: Other Onset/Duration: Persistent Quality of pain: Burning Severity: Mild Pain Level: 1 Associated symptoms: Body/muscle aches, Other - Gastric reflux Exacerbated by: Food Relieved by: Denies Similar symptoms previously: Yes Recently seen / treated by doctor: No - Related Data Allergies/Adverse Reactions: No Known Allergies Allergy (Verified 01/02/18 18:16) Past Medical History - Social History Smoking Status: Never Smoker Cigarette use (# per day): No Chew tobacco use (# tins/day): No Smoking Education Provided: No Frequency of alcohol use: None Drug Abuse: None Family History: DM. denies: Arthritis, CAD, COPD, CVA, Hyperlipidemia, Hypertension, Malignancy, Thyroid Disfunction Patient has suicidal ideation: No Patient has homicidal ideation: No Renal/ Medical History: Denies: Hx Peritoneal Dialysis GI Medical History: Reports: Hx Gastritis, Hx Gastroesophageal Reflux Disease - Immunizations Immunizations up to date: Yes Hx Diphtheria, Pertussis, Tetanus Vaccination: Yes Review of Systems - Review of Systems Notes: REVIEW OF SYSTEMS: CONSTITUTIONAL : Denies fever, chills, or sweats. Denies recent illness. EENT: Denies eye, ear, throat, or mouth pain or symptoms. Denies nasal or sinus congestion or discharge. Denies throat, tongue, or mouth swelling or difficulty swallowing. CARDIOVASCULAR: Denies chest pain. Denies palpitations or racing or irregular heart beat. Denies ankle edema. RESPIRATORY: Denies cough, cold, or chest congestion. Denies shortness of breath, difficulty breathing, or wheezing. GASTROINTESTINAL: Admits to epigastric abdominal pain GENITOURINARY: Denies difficulty urinating, painful urination, burning, frequency, blood in urine, or discharge. FEMALE GENITOURINARY: Denies vaginal bleeding, heavy or abnormal periods, irregular periods. Denies vaginal discharge or odor. MUSCULOSKELETAL: Right knee swelling SKIN: Denies rash, lesions or sores. HEMATOLOGIC : Denies easy bruising or bleeding. LYMPHATIC: Denies swollen, enlarged glands. NEUROLOGICAL: Denies confusion or altered mental status. Denies passing out or loss of consciousness. Denies dizziness or lightheadedness. Denies headache. Denies weakness or paralysis or loss of use of either side. Denies problems with gait or speech. Denies sensory loss, numbness, or tingling. Denies seizures. PSYCHIATRIC: Denies anxiety or stress. Denies depression, suicidal ideation, or homicidal ideation. ALL OTHER SYSTEMS REVIEWED AND NEGATIVE. PHYSICAL EXAMINATION: GENERAL: Well-appearing, well-nourished and in no acute distress. HEAD: Atraumatic, normocephalic. EYES: Pupils equal round and reactive to light, extraocular movements intact, conjunctiva are normal. ENT: Nares patent, oropharynx clear without exudates. Moist mucous membranes. NECK: Normal range of motion, supple without lymphadenopathy LUNGS: Breath sounds clear to auscultation bilaterally and equal. No wheezes rales or rhonchi. HEART: Regular rate and rhythm without murmurs ABDOMEN: Soft, tender in epigastric region. Female : deferred Musculoskeletal: Normal range of motion, no pitting or edema. No cyanosis. NEUROLOGICAL: Cranial nerves grossly intact. Normal speech, normal gait. Normal sensory, motor exams PSYCH: Normal mood, normal affect. SKIN: Warm, Dry, normal turgor, no rashes or lesions noted. Dictation was performed using [employer] voice recognition software Physical Exam - Vital signs Vitals: Temp Pulse BP Pulse Ox 97.9 F 74 125/73 100 01/02/18 17:04 01/02/18 17:04 01/02/18 17:04 01/02/18 17:04 Course - Re-evaluation Re-evalutation: 01/02/18 19:17 Patient's examination is most consistent with GERD possible ulceration, GI cocktail given lab work pending but otherwise she looks well is in no distress the knee itself does not appear swollen she is able to ambulate with no difficulty 01/02/18 21:17 Patient notes GI cocktail has resolved her symptoms, I will treated with Pepcid otherwise she is stable for discharge she will be given follow-up for her knee After performing a Medical Screening Examination, I estimate there is LOW risk for ACUTE APPENDICITIS, BOWEL OBSTRUCTION, ACUTE CHOLECYSTITIS, PERFORATED DIVERTICULITIS, INCARCERATED HERNIA, PANCREATITIS, PELVIC INFLAMMATORY DISEASE, PERFORATED ULCER, ECTOPIC , or TUBO-OVARIAN ABSCESS, thus I consider the discharge disposition reasonable. Also, there is no evidence or peritonitis , sepsis, or toxicity. I have reevaluated this patient multiple times and no significant life threatening changes are noted. The patient and I have discussed the diagnosis and risks, and we agree with discharging home with close follow-up with the understanding that symptoms and presentations can change. We also discussed returning to the Emergency Department immediately if new or worsening symptoms occur. We have discussed the symptoms which are most concerning (e.g., bloody stool, fever, changing or worsening pain, vomiting) that necessitate immediate return. - Vital Signs Vital signs: Temp Pulse Resp BP Pulse Ox 97.9 F 72 19 127/83 H 100 01/02/18 17:04 01/02/18 19:38 01/02/18 19:38 01/02/18 19:38 01/02/18 19:38 - Laboratory Result Diagrams: 01/02/18 18:59 01/02/18 18:59 Laboratory results interpreted by me: 01/02/18 01/02/18 18:59 18:59 RDW 17.0 H Lymphocytes % 45.2 H Sodium 146.9 H Total Protein 8.3 H - Diagnostic Test Radiology reviewed: Image reviewed - Right knee x-ray notes no significant acute abnormality there is a retained body noted, Reports reviewed Discharge - Discharge Clinical Impression: GERD (gastroesophageal reflux disease) Qualifiers: Esophagitis presence: with esophagitis Qualified Code(s): K21.0 - Gastro- esophageal reflux disease with esophagitis Knee pain Qualifiers: Chronicity: acute Laterality: right Qualified Code(s): M25.561 - Pain in right knee Condition: Stable Disposition: HOME, SELF-CARE Instructions: Reflux Disease (GERD) ([facility], [facility]) Prescriptions: Famotidine [Pepcid 20 mg Tablet] 20 mg PO DAILY #30 tablet Prednisone 60 mg PO DAILY 5 Days tablet Referrals: JIMENA ORTEGA MD [ACTIVE STAFF] - Follow up as needed BING FLANAGAN MD [ACTIVE STAFF] - Follow up as needed
[2018-01-02 19:08] LABS: ABSOLUTE BASOPHILS # (AUTO) 0.1 10^3/uL (0.0-0.2); ABSOLUTE EOSINOPHILS # (AUTO) 0.1 10^3/uL (0.0-0.6); ABSOLUTE LYMPHOCYTES (AUTO) 2.9 10^3/uL (0.5-4.7); ABSOLUTE MONOCYTES (AUTO) 0.5 10^3/uL (0.1-1.4); ABSOLUTE NEUT (AUTO) 2.9 10^3/uL (1.7-8.2); BASOPHILS % (AUTO) 0.9 % (0-2); EOSINOPHILS % (AUTO) 1.1 % (0-6); HEMOGLOBIN 13.1 g/dL (12.0-15.5); LYMPHOCYTES % (AUTO) 45.2 % (13-45); MEAN CORPUSCULAR HEMOGLOBIN 27.8 pg (27.0-33.4); MEAN CORPUSCULAR HGB CONC 33.5 g/dL (32.0-36.0); MEAN CORPUSCULAR VOLUME 83 fl (80-97); MONOCYTES % (AUTO) 7.8 % (3-13); PLATELET COUNT 332 10^3/uL (150-450); RED BLOOD COUNT 4.71 10^6/uL (3.72-5.28); TOTAL CELLS COUNTED % (AUTO) 100 %; WHITE BLOOD COUNT 6.4 10^3/uL (4.0-10.5)
[2018-01-02 19:20] LABS: ALANINE AMINOTRANSFERASE 27 U/L (9-52); ALBUMIN 4.7 g/dL (3.5-5.0); ALKALINE PHOSPHATASE 98 U/L (38-126); ANION GAP 15 (5-19); ASPARTATE AMINO TRANSFERASE 19 U/L (14-36); BILIRUBIN,DIRECT 0.2 mg/dL (0.0-0.4); BILIRUBIN,TOTAL 0.2 mg/dL (0.2-1.3); BLOOD UREA NITROGEN 10 mg/dL (7-20); CALCIUM 9.8 mg/dL (8.4-10.2); CARBON DIOXIDE 28 mmol/L (22-30); CHLORIDE 104 mmol/L (98-107); GLUCOSE 95 mg/dL (75-110); LIPASE 48.1 U/L (23-300); POTASSIUM 4.1 mmol/L (3.6-5.0); SODIUM 146.9 mmol/L (137-145); TOTAL PROTEIN 8.3 g/dL (6.3-8.2)
--- NOTE | 2018-01-02 19:25 | RADIOLOGY REPORT (SQ) ---
EXAM DESCRIPTION: KNEE RIGHT 4 VIEWS COMPLETED DATE/TIME: 01/02/2018 7:07 pm REASON FOR STUDY: knee pain COMPARISON: 03/08/2017 NUMBER OF VIEWS: Four views. TECHNIQUE: AP, lateral, and both oblique radiographic images acquired of the right knee. LIMITATIONS: None. FINDINGS: MINERALIZATION: Normal. BONES: No acute fracture or dislocation. No worrisome bone lesions. JOINT: No significant effusion. A small loose body is suggested anteriorly. Joint spaces are mainta ined. SOFT TISSUES: No soft tissue swelling. No radio-opaque foreign body. OTHER: No other significant finding. IMPRESSION: There is a small loose body in the joint. No acute abnormality is seen. TECHNICAL DOCUMENTATION: JOB ID: [id number] [employer]- All Rights Reserved Reading location - IP/workstation name: [email or web address]
[2018-01-02 19:39] VITALS: BP 127/83
== END 2018-01-02 19:45 | disposition home or self-care (01) ==
LOC: ER 16:49
DX: K21.0 Gastro-esophageal reflux disease with esophagitis (principal); M25.561 Pain in right knee; R10.13 Epigastric pain; R11.10 Vomiting, unspecified; M79.1 Myalgia
CPT/HCPCS: 99284; 36415; 83690; 85025; 80053; 73564; J3490 ×3

== ENCOUNTER 2018-01-22 21:53 | Emergency (ER) | payer MEDICAID ==
[2018-01-22 22:48] VITALS: BP 139/86
== END 2018-01-22 23:45 | disposition left against medical advice (07) ==
LOC: ER 21:53
DX: Z53.21 Procedure and treatment not carried out due to patient leaving prior to being seen by health care provider (principal)

== ENCOUNTER 2018-04-09 23:08 | Emergency (ER) | payer MEDICAID ==
[2018-04-09 23:18] VITALS: BP 118/59
[2018-04-10] MEDS ORDERED: HYDROCODONE/ACETAMINOPHEN 5-325 MG (6 TAB/ER DISP) PO PRN (00:13)
--- NOTE | 2018-04-10 00:19 | ER Document Report ---
ED General - General Chief Complaint: Knee Pain Stated Complaint: RIGHT KNEE PAIN Time Seen by Provider: 04/09/18 23:57 Notes: Patient is a pleasant 28-year-old female presents with complaint of right knee pain. She has had chronic right knee pain for several months. She is followed by an orthopedist and is actually scheduled for surgery in April. She says that at work she stands a lot and has been on her feet a lot. She says because of this over last few days her knees become more swollen and pain medicine at home is not working therefore she is come to the ER. She denies any trauma injuries to her knee. She does have a CD with an MRI. I loaded the MRI into the computer that she does not have the read associated with it. She says that her orthopedist is already looked at the MRI and has scheduled the surgery. She denies any new redness or warmth. No fevers. No other complaints at this time. Pain is mostly in the infrapatellar region as well as on the posterior aspect of the knee. No weakness, numbness, or pain into the foot. TRAVEL OUTSIDE OF THE [place] IN LAST 30 DAYS: No - Related Data Allergies/Adverse Reactions: No Known Allergies Allergy (Verified 01/02/18 18:16) Past Medical History - Social History Smoking Status: Never Smoker Frequency of alcohol use: None Drug Abuse: None Family History: DM. denies: Arthritis, CAD, COPD, CVA, Hyperlipidemia, Hypertension, Malignancy, Thyroid Disfunction Renal/ Medical History: Denies: Hx Peritoneal Dialysis GI Medical History: Reports: Hx Gastritis, Hx Gastroesophageal Reflux Disease - Immunizations Immunizations up to date: Yes Hx Diphtheria, Pertussis, Tetanus Vaccination: Yes Review of Systems - Review of Systems Notes: My Normal Review Basic REVIEW OF SYSTEMS: CONSTITUTIONAL : Denies fever, chills, or sweats. Denies recent illness. MUSCULOSKELETAL: Swelling and pain to the right knee. SKIN: Denies rash or skin lesions. NEUROLOGICAL: Denies sensory or motor loss. ALL OTHER SYSTEMS REVIEWED AND NEGATIVE. Physical Exam - Vital signs Vitals: Temp Pulse Resp BP Pulse Ox 98.6 F 80 18 118/59 L 100 04/09/18 23:17 04/09/18 23:17 04/09/18 23:17 04/09/18 23:17 04/09/18 23:17 - Notes Notes: General Appearance: Well nourished, alert, cooperative, no acute distress, no obvious discomfort. Vitals: reviewed, See vital signs table. Extremities: strength 5/5 in all extremities, good pulses in all extremities, some increased swelling of the right knee in comparison to left. No ligamentous laxity on exam. Pain is mainly over the infrapatellar ligament. Patient is able to keep her knee in full extension and raise it off the bed without difficulty. No redness or abnormal warmth upon examination of the knee. Skin: warm, dry, appropriate color, no rash Neuro: speech clear, oriented x 3, normal affect, responds appropriately to questions. Course - Re-evaluation Re-evalutation: 04/10/18 01:25 Patient does have a knee brace but she says that sometimes swelling gets to much for use knee brace as it is a sleeve. I informed her to buy an over-the- counter Velcro knee brace that she can adjusted as the swelling changes. I will give her a short course of pain medicine at home with. Informed to keep her leg elevated and I will give her a few days off work. Also gave her crutches so she is not bearing weight on her knee. She denies any trauma to her knee or popping or movement of her knee to suggest any type of dislocation. At this time feel patient safe to be discharged home. I encouraged her return to ER if she is worse in any pain or swelling, or if she feels unwell. Dictation of this chart was performed using voice recognition software; therefore, there may be some unintended grammatical errors. 04/10/18 01:26 - Vital Signs Vital signs: Temp Pulse Resp BP Pulse Ox 98.6 F 80 18 118/59 L 100 04/09/18 23:17 04/09/18 23:17 04/09/18 23:17 04/09/18 23:17 04/09/18 23:17 Discharge - Discharge Clinical Impression: Right knee pain Qualifiers: Chronicity: chronic Qualified Code(s): M25.561 - Pain in right knee Disposition: HOME, SELF-CARE Instructions: Oral Narcotic Medication ([facility]) Additional Instructions: Please go to the drug store or pharmacy supply store and buy a velcro adjustable knee brace to wear on your right knee. gerhard use the crutches to remain non-weight bearing off of your right knee. Please keep your right knee elevated on pillows when sleeping at night. Apply ice packs to your knee for no more than 20 minutes at a time. return to the ER if you develop redness or warmth to your knee. Continue to follow closely with your orthopedist. Please be aware that [facility] does have Tylenol (acetaminophen) in it. Please make sure you do not take more than 4000 mg of acetaminophen a day. Do not drive or care for children after you have taken this medication they will make you sleepy and sometimes impair judgment. Forms: Special Work Note, Return to Work
== END 2018-04-10 00:46 | disposition home or self-care (01) ==
LOC: ER 23:08
DX: G89.29 Other chronic pain (principal); M25.561 Pain in right knee; M25.461 Effusion, right knee
CPT/HCPCS: 99283

== ENCOUNTER 2018-05-08 18:28 | Emergency (ER) | payer MEDICAID ==
[2018-05-08 19:03] VITALS: BP 138/91
--- NOTE | 2018-05-08 19:50 | EKG REPORT ---
SEVERITY:- OTHERWISE NORMAL ECG - SINUS RHYTHM MINIMAL ST DEPRESSION, ANTERIOR LEADS : Confirmed by: Karlos Reyes MD 08-May-2018 19:49:14
[2018-05-08] MEDS ORDERED: ONDANSETRON 4 MG TAB.RAPDIS PO ONE (20:13)
[2018-05-08] MEDS ORDERED: DICYCLOMINE HCL 20 MG TABLET PO ONE (20:13)
--- NOTE | 2018-05-08 20:16 | ER Document Report ---
ED Medical Screen (RME) - General Chief Complaint: Nausea/Vomiting Stated Complaint: VOMITING, STOMACH PAIN Time Seen by Provider: 05/08/18 20:03 Notes: RAPID MEDICAL EVALUATION DISCLOSURE I have seen this patient as part of a Rapid Medical Evaluation and, if applicable, placed any initially appropriate orders. The patient will be seen and fully evaluated, including a full history and physical exam, by a provider ( in Main ED or Fast Track) when a room becomes available. 28-year-old female here with complaints of chest pain shortness of breath and abdominal pain with associated nausea vomiting that started approximately 7 days ago. She underwent intubation for right knee surgery and states that shortly after extubation, she started to have the symptoms. She has noticed that the symptoms are sometimes worse with eating/drinking but not always. She has tried Pepto-Bismol Zofran Tylenol Motrin with not much relief. Denies urinary symptoms. EXAM CTAB RRR Mild epigastric TTP TRAVEL OUTSIDE OF THE [place] IN LAST 30 DAYS: No - Related Data Allergies/Adverse Reactions: No Known Allergies Allergy (Verified 01/02/18 18:16) Past Medical History Renal/ Medical History: Denies: Hx Peritoneal Dialysis GI Medical History: Reports: Hx Gastritis, Hx Gastroesophageal Reflux Disease Past Surgical History: Reports: Hx Orthopedic Surgery - l mcl repair 1 week ago - Immunizations Immunizations up to date: Yes Hx Diphtheria, Pertussis, Tetanus Vaccination: Yes Physical Exam - Vital signs Vitals: Temp Pulse Resp BP Pulse Ox 98.2 F 63 16 138/91 H 98 05/08/18 19:01 05/08/18 19:01 05/08/18 19:01 05/08/18 19:01 05/08/18 19:01 Course - Vital Signs Vital signs: Temp Pulse Resp BP Pulse Ox 98.2 F 63 16 138/91 H 98 05/08/18 19:01 05/08/18 19:01 05/08/18 19:01 05/08/18 19:01 05/08/18 19:01
[2018-05-08 20:56] LABS: ABSOLUTE BASOPHILS # (AUTO) 0.1 10^3/uL (0.0-0.2); ABSOLUTE LYMPHOCYTES (AUTO) 2.4 10^3/uL (0.5-4.7); ABSOLUTE MONOCYTES (AUTO) 0.7 10^3/uL (0.1-1.4); ABSOLUTE NEUT (AUTO) 5.4 10^3/uL (1.7-8.2); BASOPHILS % (AUTO) 0.6 % (0-2); EOSINOPHILS % (AUTO) 0.1 % (0-6); HEMATOCRIT 43.5 % (36.0-47.0); HEMOGLOBIN 14.2 g/dL (12.0-15.5); MEAN CORPUSCULAR HEMOGLOBIN 27.3 pg (27.0-33.4); MEAN CORPUSCULAR HGB CONC 32.7 g/dL (32.0-36.0); MEAN CORPUSCULAR VOLUME 84 fl (80-97); MONOCYTES % (AUTO) 8.5 % (3-13); PLATELET COUNT 362 10^3/uL (150-450); RED BLOOD COUNT 5.21 10^6/uL (3.72-5.28); SEGMENTED NEUTROPHILS % (AUTO) 62.8 % (42-78); TOTAL CELLS COUNTED % (AUTO) 100 %; WHITE BLOOD COUNT 8.5 10^3/uL (4.0-10.5)
[2018-05-08 21:08] LABS: APPEARANCE,URINE SLIGHTLY-CLOUDY; BILIRUBIN,URINE SMALL (NEGATIVE); COLOR,URINE AMBER; GLUCOSE, URINE NEGATIVE (NEGATIVE); KETONES,URINE 80 mg/dL (NEGATIVE); LEUKOCYTE ESTERASE,URINE NEGATIVE (NEGATIVE); NITRITE,URINE NEGATIVE (NEGATIVE); PROTEIN,URINE >=500 mg/dL (NEGATIVE); URINE SPECIFIC GRAVITY 1.033
[2018-05-08 21:11] LABS: ALANINE AMINOTRANSFERASE 26 U/L (9-52); ALBUMIN 5.4 g/dL (3.5-5.0); ALKALINE PHOSPHATASE 97 U/L (38-126); ANION GAP 19 (5-19); ASPARTATE AMINO TRANSFERASE 25 U/L (14-36); BILIRUBIN,DIRECT 0.5 mg/dL (0.0-0.4); BILIRUBIN,TOTAL 0.6 mg/dL (0.2-1.3); BLOOD UREA NITROGEN 11 mg/dL (7-20); CALCIUM 11.1 mg/dL (8.4-10.2); CARBON DIOXIDE 34 mmol/L (22-30); CHLORIDE 101 mmol/L (98-107); GLUCOSE 124 mg/dL (75-110); LIPASE 78.2 U/L (23-300); POTASSIUM 3.2 mmol/L (3.6-5.0); SODIUM 153.9 mmol/L (137-145); TOTAL PROTEIN 10.1 g/dL (6.3-8.2)
[2018-05-08] MEDS ORDERED: DIPHENHYDRAMINE HCL 50 MG/ML VIAL IV ONE (22:20)
[2018-05-08] MEDS ORDERED: PROCHLORPERAZINE EDISYLATE INJ 10 MG/2 ML VIAL IV ONE (22:20)
[2018-05-08] MEDS ORDERED: FAMOTIDINE INJ/PF 20 MG/2 ML SDV IV ONE (22:24)
--- NOTE | 2018-05-08 22:24 | ER Document Report ---
ED General - General Chief Complaint: Nausea/Vomiting Stated Complaint: VOMITING, STOMACH PAIN Time Seen by Provider: 05/08/18 20:03 TRAVEL OUTSIDE OF THE [place] IN LAST 30 DAYS: No - HPI Notes: 28-year-old female who presents with vomiting. Patient states that approximately 5 days ago she had some type of arthroscopic surgery in her right knee. The next day she began to have vomiting, multiple times per day. She subsequently developed some epigastric pain. No fever, chills or sweats. Some blood-tinged vomitus over the last day or 2. States she was seen at an outside hospital in [place] at which time she was admitted and they "wanted to keep me " but she had come down here to go back to work. Burning throbbing epigastric pain, nonradiating. Multiple episodes of vomiting per day. No other modifying factors, no other associated symptoms, no other provocative or palliative factors. Seen by physician in triage ordered medications and labs. She apparently was unable to take the oral medications. - Related Data Allergies/Adverse Reactions: No Known Allergies Allergy (Verified 01/02/18 18:16) Past Medical History - Social History Smoking Status: Never Smoker Family History: DM. denies: Arthritis, CAD, COPD, CVA, Hyperlipidemia, Hypertension, Malignancy, Thyroid Disfunction Patient has suicidal ideation: No Patient has homicidal ideation: No - Medical History Notes: Includes recent arthroscopic surgery right knee Renal/ Medical History: Denies: Hx Peritoneal Dialysis GI Medical History: Reports: Hx Gastritis, Hx Gastroesophageal Reflux Disease Past Surgical History: Reports: Hx Orthopedic Surgery - l mcl repair 1 week ago - Immunizations Immunizations up to date: Yes Hx Diphtheria, Pertussis, Tetanus Vaccination: Yes Review of Systems - Review of Systems Notes: Review of systems as in the history of present illness, otherwise negative x 10 systems. Physical Exam - Vital signs Vitals: Temp Pulse Resp BP Pulse Ox 98.2 F 63 16 138/91 H 98 05/08/18 19:01 05/08/18 19:01 05/08/18 19:01 05/08/18 19:01 05/08/18 19:01 - Notes Notes: General: Well developed . I mucosa HEENT: Normocephalic, atraumatic. Pupils equal round reactive to light. No JVD. Chest: No trauma. Respiratory: Good air exchange, normal excursion. Cardiac: Regular rhythm. No murmurs or gallops. Abdomen: Soft, benign. Mild epigastric tenderness Back: No asymmetry or gross abnormality. Motor: Grossly normal power and tone. Neurologic: Alert, nonfocal. Cranial nerves II-12 are intact. Sensation intact. Vascular: Well perfused. Normal peripheral pulses. Skin: No petechiae or purpura. Extremities: Right knee shows mild edema slight bruising well-healed port scores. No erythema or warmth Course - Re-evaluation Re-evalutation: 05/08/18 22:23 28-year-old female with refractory vomiting. Clinical evidence of dehydration is noted. Relatively benign exam. Will check chemistries evaluate for underlying renal function and electrolytes. Check LFTs lipase. Likely has a component of stress gastritis will treat with famotidine, fluids, Compazine, Bentyl and reassess. 05/09/18 00:15 Patient labs reviewed, CBC unremarkable. Chemistries show elevated bicarbonate as well as sodium. Otherwise unremarkable, normal renal function. Patient has had marked improvement with the administration of Compazine. She received IV fluids as well. She is tolerating p.o. fluids. She is offered observation admission but is declined. She is asked to have her chemistries rechecked over the next 24 hours, increase free water and fluids. She is given a prescription for Compazine, Bentyl. 05/09/18 00:16 - Vital Signs Vital signs: Temp Pulse Resp BP Pulse Ox 98.2 F 63 16 138/91 H 98 05/08/18 19:01 05/08/18 19:01 05/08/18 19:01 05/08/18 19:01 05/08/18 19:01 - Laboratory Result Diagrams: 05/08/18 20:40 05/08/18 20:40 Laboratory results interpreted by me: 05/08/18 05/08/18 05/08/18 20:40 20:40 20:40 RDW 17.0 H Sodium 153.9 H Potassium 3.2 L Carbon Dioxide 34 H Glucose 124 H Calcium 11.1 H Direct Bilirubin 0.5 H Total Protein 10.1 H Albumin 5.4 H Urine Protein >=500 H Urine Ketones 80 H Urine Bilirubin SMALL H Urine Urobilinogen 2.0 H Discharge - Discharge Clinical Impression: Dehydration Vomiting Qualifiers: Vomiting type: unspecified Vomiting Intractability: non-intractable Nausea presence: unspecified Qualified Code(s): R11.10 - Vomiting, unspecified Condition: Good Disposition: HOME, SELF-CARE Instructions: Antinausea Medication ([facility]), Vomiting ([facility]) Additional Instructions: Follow-up with your primary care doctor in the morning Prescriptions: Dicyclomine HCl [Bentyl 20 mg Tablet] 20 mg PO Q8 #12 tablet Prochlorperazine Maleate [Compazine 10 mg Tablet] 10 mg PO ASDIR PRN #10 tablet PRN Reason: Prochlorperazine Maleate [Compazine 25 Mg Supp.Rect] 25 mg LA Q8 #12 supp.rect
--- NOTE | 2018-05-08 22:26 | RADIOLOGY REPORT (SQ) ---
EXAM DESCRIPTION: ACUTE ABDOMEN SERIES COMPLETED DATE/TIME: 05/08/2018 9:34 pm REASON FOR STUDY: CP abd pain after intubation for knee surgery COMPARISON: None. NUMBER OF VIEWS: Three views. TECHNIQUE: Frontal chest, supine abdomen and upright/decubitus abdomen radiographic images acquired. LIMITATIONS: None. FINDINGS: CHEST: Lungs clear of infiltrates. FREE AIR: None. No abnormal gas collections. BOWEL GAS PATTERN: Nonobstructive pattern. No dilated loops or air fluid levels. CALCIFICATIONS: No suspicious calcifications. HARDWARE: None in the abdomen. SOFT TISSUES: No gross mass or suggestion of organomegaly. BONES: Scoliosis. OTHER: No other significant finding. IMPRESSION: NO RADIOGRAPHIC EVIDENCE FOR ACUTE ABDOMINAL DISEASE. TECHNICAL DOCUMENTATION: JOB ID: [id number] [email or web address]- All Rights Reserved Reading location - IP/workstation name: [email or web address]
[2018-05-08] MEDS ORDERED: DICYCLOMINE HCL INJ 20 MG/2 ML AMPULE IM ONE (22:30)
[2018-05-09] MEDS ORDERED: NORMAL SALINE 1000 ML 1,000 ML IV ONE (00:16)
== END 2018-05-09 01:02 | disposition home or self-care (01) ==
LOC: ER 18:28
DX: R11.2 Nausea with vomiting, unspecified (principal); E86.0 Dehydration; R10.13 Epigastric pain; Z98.890 Other specified postprocedural states; Z87.19 Personal history of other diseases of the digestive system
CPT/HCPCS: 93005; 99284; 96372; 96374; 96375; 36415; 83690; 85025; 81025; 80053; 81001; 84484; 74022; 93010; J3490; J0500; J1200; S0119; J0780; J7030; S0028